=== PATIENT | female | born 1965 | race Caucasian/White ===

== ENCOUNTER 2021-05-15 14:09 | Emergency (ER) | payer OTHER ==
[2021-05-15 15:07] LABS: BASOPHIL 0.5 % (0-2); EOSINOPHIL 4.8 % (0-5); HCT 43.1 % (37.0-47.0); HGB 12.7 g/dl (12.5-16.0); LYMPHOCYTE 33.3 % (15-48); MCH 25.9 pg (25.0-31.0); MCHC 29.5 g/dL (32.0-36.0); MPV 9.8 fL (6.0-9.5); NEUTROPHIL 54.7 % (41-80); NRBC 0; PLT 185 K/uL (150-400); RDW 14.1 % (11.5-14.0); WBC 8.6 K/uL (4.0-10.5)
[2021-05-15 15:51] LABS: ALBUMIN 3.1 g/dL (3.4-5.0); BILIRUBIN - TOTAL 0.2 mg/dL (0.2-1.0); BUN/CREAT RATIO (CALC) 12.9 RATIO; CREATININE 0.7 mg/dL (0.51-0.95); FT4 (FREE T4) 0.9 ng/dL (0.76-1.46); GLOBULIN (CALCULATION) 3.5 g/dL; MAGNESIUM 1.2 mg/dL (1.8-2.4); PHOSPHORUS 3.9 mg/dL (2.6-4.7); POTASSIUM 4.1 mmol/L (3.5-5.1); TOTAL PROTEIN 6.6 g/dL (6.4-8.2)
[2021-05-15 21:22] LABS: ECSTASY (MDMA) NEGATIVE (NEGATIVE); MARIJUANA (THC) NEGATIVE (NEGATIVE); METHADONE NEGATIVE (NEGATIVE)
[2021-05-15 21:23] LABS: AMPHETAMINES NEGATIVE (NEGATIVE); BARBITURATES NEGATIVE (NEGATIVE); OPIATES POSITIVE (NEGATIVE); OXYCODONE NEGATIVE (NEGATIVE)
[2021-05-15 21:24] LABS: BILIRUBIN NEGATIVE (NEGATIVE); BLOOD NEGATIVE Ery/uL (NEGATIVE); CLARITY CLEAR (CLEAR); COLOR YELLOW (YELLOW); GLUCOSE (U) NORMAL (NORMAL); LEUKOCYTES TRACE Leu/uL (NEGATIVE); NITRITE NEGATIVE (NEGATIVE); PROTEIN NEGATIVE (NEGATIVE); UROBILINOGEN 0.2 mg/dL (0.2-1.0)
[2021-05-15 21:54] LABS: URINARY WBC RARE
[2021-05-15 21:55] LABS: AMORPHOUS URATES CRYSTALS TRACE
== END 2021-05-15 23:10 | disposition home or self-care (01) ==
LOC: FER 14:09
PROVIDERS: Emergency Medicine
DX: E11.649 Type 2 diabetes mellitus with hypoglycemia without coma (principal); R53.1 Weakness; I25.10 Atherosclerotic heart disease of native coronary artery without angina pectoris; I11.0 Hypertensive heart disease with heart failure; I50.9 Heart failure, unspecified; E66.01 Morbid (severe) obesity due to excess calories; Z20.822 Contact with and (suspected) exposure to COVID-19; Z88.1 Allergy status to other antibiotic agents
CPT/HCPCS: 36415; 71045; 80053; 80305; 81001; 83735; 83880; 84100; 84439; 84443; 84484; 85025; 93005; J1940; U0002

== ENCOUNTER 2021-05-30 17:33 | Emergency (ER) | payer OTHER ==
[2021-05-30 18:56] LABS: BASOPHIL 0.5 % (0-2); HCT 41.1 % (37.0-47.0); HGB 12.1 g/dl (12.5-16.0); LYMPHOCYTE 25.6 % (15-48); MCH 25.1 pg (25.0-31.0); MCHC 29.4 g/dL (32.0-36.0); MCV 85.1 fL (78.0-100.0); MPV 9.4 fL (6.0-9.5); NEUTROPHIL 64.4 % (41-80); NRBC 0; PLT 166 K/uL (150-400); RBC 4.83 M/uL (4.20-5.40); RDW 14.5 % (11.5-14.0); WBC 7.4 K/uL (4.0-10.5)
[2021-05-30 19:28] LABS: ALBUMIN 3.1 g/dL (3.4-5.0); BILIRUBIN - TOTAL 0.4 mg/dL (0.2-1.0); BUN/CREAT RATIO (CALC) 12.7 RATIO; CREATININE 0.71 mg/dL (0.51-0.95); GLOBULIN (CALCULATION) 3.4 g/dL; TOTAL PROTEIN 6.5 g/dL (6.4-8.2)
== END 2021-05-30 23:00 | disposition home or self-care (01) ==
LOC: FER 17:33
PROVIDERS: Emergency Medicine
DX: R10.13 Epigastric pain (principal); G89.29 Other chronic pain; E66.01 Morbid (severe) obesity due to excess calories; Z88.1 Allergy status to other antibiotic agents
CPT/HCPCS: 36415; 74022; 80053; 83690; 85025

== ENCOUNTER 2021-07-05 18:20 | Day surgery (SDCO) | payer OTHER ==
[~2021-07-05] VITALS: Ht 167.6 cm; Wt 194.7 kg
[2021-07-05 18:57] LABS: BASOPHIL 0.5 % (0-2); EOSINOPHIL 3.9 % (0-5); HCT 41.8 % (37.0-47.0); HGB 12.3 g/dl (12.5-16.0); LYMPHOCYTE 23.5 % (15-48); MCH 25.3 pg (25.0-31.0); MCHC 29.4 g/dL (32.0-36.0); MCV 85.8 fL (78.0-100.0); MONOCYTE 5.3 % (0-12); MPV 9.4 fL (6.0-9.5); NEUTROPHIL 66.2 % (41-80); NRBC 0; PLT 175 K/uL (150-400); RBC 4.87 M/uL (4.20-5.40); WBC 7.9 K/uL (4.0-10.5)
[2021-07-05 19:25] LABS: ALBUMIN 3.2 g/dL (3.4-5.0); BILIRUBIN - TOTAL 0.3 mg/dL (0.2-1.0); BUN/CREAT RATIO (CALC) 14.7 RATIO; CREATININE 0.68 mg/dL (0.51-0.95); FT4 (FREE T4) 1.1 ng/dL (0.76-1.46); GLOBULIN (CALCULATION) 3.6 g/dL; POTASSIUM 4.5 mmol/L (3.5-5.1); TOTAL PROTEIN 6.8 g/dL (6.4-8.2)
[2021-07-05 19:55] LABS: CORONAVIRUS 2019 SARS-COV-2 NEGATIVE (NEGATIVE); INFLUENZA A NAA NEGATIVE (NEGATIVE)
[2021-07-06] MEDS ORDERED: ASPIRIN EC81 MG PO (01:17)
[2021-07-06] MEDS ORDERED: VENTOLIN HFA IN18 GM INH ×2 (01:17→01:42)
[2021-07-06] MEDS ORDERED: BIOFREEZE473 ML TOP (01:19)
[2021-07-06] MEDS ORDERED: CARVEDILOL3.125 MG PO (01:20)
[2021-07-06] MEDS ORDERED: CLONAZEPAM0.5 M1 PO (01:20)
[2021-07-06] MEDS ORDERED: CYANOCOBAL1000 MCG/1 IJ (01:23)
[2021-07-06] MEDS ORDERED: DESVENLAFAXINE50 M3 PO (01:24)
[2021-07-06] MEDS ORDERED: BENTYL10 MG PO (01:25)
[2021-07-06] MEDS ORDERED: FLONASE ALLERG9.9 ML (01:27)
[2021-07-06] MEDS ORDERED: FOLIC ACID1 MG PO (01:27)
[2021-07-06] MEDS ORDERED: GABAPENTIN600 MG PO (01:28)
[2021-07-06] MEDS ORDERED: AMARYL2 MG PO (01:29)
[2021-07-06] MEDS ORDERED: HUMALOG 75100 UNIT/M SC (01:30)
[2021-07-06] MEDS ORDERED: IBUPROFEN800 MG PO (01:31)
[2021-07-06] MEDS ORDERED: IMODIUM2 MG PO (01:32)
[2021-07-06] MEDS ORDERED: LAMICTAL100 MG PO (01:32)
[2021-07-06] MEDS ORDERED: LANTUS **100 UNITS/ SC (01:33)
[2021-07-06] MEDS ORDERED: MOBIC7.5 MG PO (01:33)
[2021-07-06] MEDS ORDERED: METFORMIN HCL500 MG PO (01:34)
[2021-07-06] MEDS ORDERED: NYSTATIN 30GM C30 GM TOP (01:36)
[2021-07-06] MEDS ORDERED: DITROPAN5 MG PO (01:37)
[2021-07-06] MEDS ORDERED: PERCOCET 5-3251 EACH PO (01:38)
[2021-07-06] MEDS ORDERED: PROTONIX 40MG T40 MG PO (01:38)
[2021-07-06] MEDS ORDERED: TRAZODONE HCL150 MG PO (01:39)
[2021-07-06] MEDS ORDERED: VITAMIN D21250 MCG PO (01:41)
[2021-07-06 06:41] LABS: BASOPHIL 0.6 % (0-2); EOSINOPHIL 4.4 % (0-5); HCT 41.3 % (37.0-47.0); HGB 11.9 g/dl (12.5-16.0); LYMPHOCYTE 30.3 % (15-48); MCH 24.9 pg (25.0-31.0); MCHC 28.8 g/dL (32.0-36.0); MCV 86.4 fL (78.0-100.0); MONOCYTE 4.6 % (0-12); MPV 9.5 fL (6.0-9.5); NEUTROPHIL 59.5 % (41-80); NRBC 0; PLT 165 K/uL (150-400); RBC 4.78 M/uL (4.20-5.40); RDW 14.9 % (11.5-14.0); WBC 6.8 K/uL (4.0-10.5)
[2021-07-06 07:12] LABS: ALBUMIN 3.2 g/dL (3.4-5.0); BILIRUBIN - TOTAL 0.3 mg/dL (0.2-1.0); CREATININE 0.69 mg/dL (0.51-0.95); GLOBULIN (CALCULATION) 3.6 g/dL; MAGNESIUM 1.6 mg/dL (1.8-2.4); PHOSPHORUS 3.6 mg/dL (2.6-4.7); TOTAL PROTEIN 6.8 g/dL (6.4-8.2)
[2021-07-06 07:57] LABS: CKMB 0.6 ng/mL (0.0-3.6)
--- NOTE | 2021-07-06 15:00 | NUR ---
07/06/21 Susan Michelle reports that [facility] will accept back. Ms. Willams has been at [facility] since 2019. - [facility] was informed that Ms. Willams will return with
== END 2021-07-06 14:15 ==
LOC: FER 18:20 → FMS 23:25
PROVIDERS: Internal Medicine; Nurse Practitioner; ADMIT Internal Medicine
DX: J96.21 Acute and chronic respiratory failure with hypoxia (principal); J96.22 Acute and chronic respiratory failure with hypercapnia; E66.2 Morbid (severe) obesity with alveolar hypoventilation; I10 Essential (primary) hypertension; F41.8 Other specified anxiety disorders; J45.909 Unspecified asthma, uncomplicated; R07.89 Other chest pain; R00.2 Palpitations; R11.0 Nausea; I25.10 Atherosclerotic heart disease of native coronary artery without angina pectoris; M19.90 Unspecified osteoarthritis, unspecified site; E11.22 Type 2 diabetes mellitus with diabetic chronic kidney disease; I13.0 Hypertensive heart and chronic kidney disease with heart failure and stage 1 through stage 4 chronic kidney disease, or unspecified chronic kidney disease; N18.9 Chronic kidney disease, unspecified; I50.9 Heart failure, unspecified; Z79.82 Long term (current) use of aspirin; Z20.822 Contact with and (suspected) exposure to COVID-19; Z88.1 Allergy status to other antibiotic agents; Z87.891 Personal history of nicotine dependence
CPT/HCPCS: 36415; 36600; 71045; 80053; 80061; 82553; 82803; 83036; 83605; 83735; 83880; 84100; 84145; 84439; 84443; 84484; 85025; 85379; 93005; 94010; 94640; 94762; G0378; J1815; U0002

== ENCOUNTER 2021-11-20 22:48 | Inpatient (IN) | payer OTHER ==
[~2021-11-20] VITALS: Ht 165.1 cm; Wt 199.0 kg
[~2021-11-20 22:48] MED LIST: AMARYL2 MG PO; ASPIRIN EC81 MG PO; BENTYL10 MG PO; BIOFREEZE473 ML TOP; CARVEDILOL3.125 MG PO; CLONAZEPAM0.5 M1 PO; CYANOCOBAL1000 MCG/1 IJ; DESVENLAFAXINE50 M3 PO; DITROPAN5 MG PO; FLONASE ALLERG9.9 ML; FOLIC ACID1 MG PO; GABAPENTIN600 MG PO; HUMALOG 75100 UNIT/M SC; IBUPROFEN800 MG PO; IMODIUM2 MG PO; LAMICTAL100 MG PO; LANTUS **100 UNITS/ SC; METFORMIN HCL500 MG PO; MOBIC7.5 MG PO; NYSTATIN 30GM C30 GM TOP; PERCOCET 5-3251 EACH PO; PROTONIX 40MG T40 MG PO; TRAZODONE HCL150 MG PO; VENTOLIN HFA IN18 GM INH; VITAMIN D21250 MCG PO
[2021-11-20 23:18] LABS: BASOPHIL 0.4 % (0-2); EOSINOPHIL 2.7 % (0-5); HCT 39.7 % (37.0-47.0); HGB 11.3 g/dl (12.5-16.0); LYMPHOCYTE 19.2 % (15-48); MCH 25.3 pg (25.0-31.0); MCHC 28.5 g/dL (32.0-36.0); MCV 88.8 fL (78.0-100.0); MONOCYTE 5.2 % (0-12); MPV 9.8 fL (6.0-9.5); NEUTROPHIL 71.2 % (41-80); NRBC 0; PLT 171 K/uL (150-400); RBC 4.47 M/uL (4.20-5.40); RDW 14.6 % (11.5-14.0); WBC 8.9 K/uL (4.0-10.5)
[2021-11-20 23:27] LABS: INR 1.01 (0.9-1.2)
[2021-11-20 23:41] LABS: BILIRUBIN - TOTAL 0.3 mg/dL (0.2-1.0); BUN/CREAT RATIO (CALC) 13.8 RATIO; CREATININE 0.65 mg/dL (0.51-0.95); GLOBULIN (CALCULATION) 3.4 g/dL; TOTAL PROTEIN 6.4 g/dL (6.4-8.2)
[2021-11-20 23:51] LABS: CORONAVIRUS 2019 SARS-COV-2 NEGATIVE (NEGATIVE); INFLUENZA A NAA NEGATIVE (NEGATIVE)
[2021-11-21 06:46] LABS: HCT 36.3 % (37.0-47.0); HGB 10.6 g/dl (12.5-16.0); MCHC 29.2 g/dL (32.0-36.0); MCV 85.6 fL (78.0-100.0); MPV 9.7 fL (6.0-9.5); RBC 4.24 M/uL (4.20-5.40); RDW 14.6 % (11.5-14.0); WBC 7.5 K/uL (4.0-10.5)
[2021-11-21 07:33] LABS: ALBUMIN 2.7 g/dL (3.4-5.0); BILIRUBIN - TOTAL 0.6 mg/dL (0.2-1.0); BUN/CREAT RATIO (CALC) 18.3 RATIO; CREATININE 0.71 mg/dL (0.51-0.95); GLOBULIN (CALCULATION) 3.2 g/dL; MAGNESIUM 1.2 mg/dL (1.8-2.4); POTASSIUM 4.4 mmol/L (3.5-5.1); TOTAL PROTEIN 5.9 g/dL (6.4-8.2)
[2021-11-21 09:57] LABS: VANCOMYCIN, TROUGH <0.8 ug/mL (10-20)
[2021-11-21 10:48] LABS: BILIRUBIN 1+ mg/dL (NEGATIVE); BLOOD NEGATIVE Ery/uL (NEGATIVE); CLARITY CLEAR (CLEAR); COLOR YELLOW (YELLOW); GLUCOSE (U) NORMAL (NORMAL); LEUKOCYTES 1+ Leu/uL (NEGATIVE); NITRITE NEGATIVE (NEGATIVE); PROTEIN TRACE (LOW) mg/dL (NEGATIVE); SPECIFIC GRAVITY 1.015 (1.001-1.030); pH 8.5 (5.0-9.0)
[2021-11-21 10:59] LABS: LACTIC ACID 2.2 mmol/L (0.4-1.9)
[2021-11-21 11:06] LABS: BACTERIA TRACE; URINARY WBC 20-50
--- NOTE | 2021-11-21 15:58 | NUR ---
11/21/21 Ms. Willams was admitted from [facility]. [facility] will accept her back per Katie Siddiqi.
[2021-11-22 06:24] LABS: BASOPHIL 0.5 % (0-2); EOSINOPHIL 4.7 % (0-5); HCT 33.8 % (37.0-47.0); HGB 10.2 g/dl (12.5-16.0); LYMPHOCYTE 27.8 % (15-48); MCH 25.7 pg (25.0-31.0); MCHC 30.2 g/dL (32.0-36.0); MCV 85.1 fL (78.0-100.0); MONOCYTE 5.8 % (0-12); MPV 9.8 fL (6.0-9.5); NEUTROPHIL 60.4 % (41-80); NRBC 0; PLT 146 K/uL (150-400); RBC 3.97 M/uL (4.20-5.40); RDW 15.4 % (11.5-14.0); WBC 6.4 K/uL (4.0-10.5)
[2021-11-22 07:27] LABS: IRON % SATURATION 12.5 %SAT (20-50)
[2021-11-22 07:54] LABS: ALBUMIN 2.5 g/dL (3.4-5.0); BILIRUBIN - DIRECT 0.2 mg/dL (0.00-0.20); BILIRUBIN - TOTAL 0.5 mg/dL (0.2-1.0); BUN/CREAT RATIO (CALC) 16.7 RATIO; C-REACTIVE PROTEIN 3.9 mg/dL (<=0.90); CREATININE 0.78 mg/dL (0.51-0.95); GLOBULIN (CALCULATION) 2.6 g/dL; MAGNESIUM 1.7 mg/dL (1.8-2.4); PHOSPHORUS 2.9 mg/dL (2.6-4.7); POTASSIUM 3.6 mmol/L (3.5-5.1); TOTAL PROTEIN 5.1 g/dL (6.4-8.2)
[2021-11-23 06:33] LABS: HCT 35.5 % (37.0-47.0); HGB 10.2 g/dl (12.5-16.0); MCHC 28.7 g/dL (32.0-36.0); MPV 9.8 fL (6.0-9.5); RBC 4.08 M/uL (4.20-5.40); RDW 15.9 % (11.5-14.0); WBC 5.6 K/uL (4.0-10.5)
--- NOTE | 2021-11-23 06:54 | NUR ---
PT PULLED IJ OUT ZENOBIA MICHEL NOTIFIED.
[2021-11-23 07:09] LABS: BUN/CREAT RATIO (CALC) 11.3 RATIO; CREATININE 0.71 mg/dL (0.51-0.95); POTASSIUM 4.1 mmol/L (3.5-5.1)
[2021-11-23] MEDS ORDERED: FLORASTOR250 MG PO (07:41)
[2021-11-23] MEDS ORDERED: GABAPENTIN600 MG PO (07:41)
[2021-11-23] MEDS ORDERED: PERCOCET 5-3251 EACH PO (07:41)
[2021-11-23] MEDS ORDERED: AUGMENTIN 500-1 EACH PO (07:41)
[2021-11-23] MEDS ORDERED: CLONAZEPAM0.5 M1 PO (07:41)
== END 2021-11-23 11:05 | DRG 208 ==
LOC: FER 22:48 → FICU 11-21 03:38 → FTCU 11-22 15:40
PROVIDERS: Internal Medicine; Nurse Practitioner; ADMIT Family Medicine
PROC: 5A1935Z Respiratory Ventilation, Less than 24 Consecutive Hours (ICD-10-PCS; principal; 2021-11-21)
PROC: 0BH17EZ Insertion of Endotracheal Airway into Trachea, Via Natural or Artificial Opening (ICD-10-PCS; 2021-11-21)
PROC: 05HM33Z Insertion of Infusion Device into Right Internal Jugular Vein, Percutaneous Approach (ICD-10-PCS; 2021-11-21)
DX: J96.21 Acute and chronic respiratory failure with hypoxia (principal); G93.41 Metabolic encephalopathy; J18.9 Pneumonia, unspecified organism; E87.3 Alkalosis; N30.01 Acute cystitis with hematuria; E87.2 Acidosis; Z68.45 Body mass index [BMI] 70 or greater, adult; E66.2 Morbid (severe) obesity with alveolar hypoventilation; I82.409 Acute embolism and thrombosis of unspecified deep veins of unspecified lower extremity; I13.0 Hypertensive heart and chronic kidney disease with heart failure and stage 1 through stage 4 chronic kidney disease, or unspecified chronic kidney disease; Z20.822 Contact with and (suspected) exposure to COVID-19; J96.22 Acute and chronic respiratory failure with hypercapnia; E11.9 Type 2 diabetes mellitus without complications; E83.42 Hypomagnesemia; D64.9 Anemia, unspecified; I25.10 Atherosclerotic heart disease of native coronary artery without angina pectoris; I50.9 Heart failure, unspecified; F41.9 Anxiety disorder, unspecified; F32.A Depression, unspecified; K21.9 Gastro-esophageal reflux disease without esophagitis; N18.9 Chronic kidney disease, unspecified; Z87.891 Personal history of nicotine dependence; Z83.3 Family history of diabetes mellitus; Z82.49 Family history of ischemic heart disease and other diseases of the circulatory system; Z79.4 Long term (current) use of insulin
CPT/HCPCS: 31500; 36415; 36600; 71045; 74018; 80048; 80053; 80076; 80202; 81001; 82607; 82803; 82962; 83036; 83540; 83550; 83605; 83615; 83735; 83880; 84100; 84145; 84484; 85025; 85610; 85730; 86140; 87088; 93005; 93970; 94002; 94640; 94660; 94760; 94762; 96374; C9113; J0330; J1650; J1885; J2250; J2543; J2704; J3010; J3475; J7120; U0002